=== PATIENT | female | born 1980 | race Caucasian/White ===

== ENCOUNTER 2024-04-01 14:11 | Emergency (ER) | payer OTHER ==
[~2024-04-01] VITALS: Ht 162.6 cm; Wt 74.8 kg
[2024-04-01] MEDS ORDERED: METOCLOPRAMIDE HCL 10 MG/2 ML VIAL IV ONE (15:00)
[2024-04-01] MEDS ORDERED: ACETAMINOPHEN ES 500 MG TABLET ONE (15:29)
[2024-04-01] MEDS ORDERED: METOCLOPRAMIDE HCL 10 MG/2 ML VIAL ONE (15:29)
[2024-04-01] MEDS ORDERED: MECLIZINE HCL 25 MG TABLET ONE (15:29)
[2024-04-01] MEDS: IV NS 0.9% 1,000 ML BAG IV ONE (15:38)
[2024-04-01] MEDS: MECLIZINE HCL 25 MG TABLET PO ONE (15:40)
[2024-04-01] MEDS: ACETAMINOPHEN ES 500 MG TABLET PO ONE (15:41)
[2024-04-01 15:58] LABS: CARBON DIOXIDE 30 mmol/L (21-32); CHLORIDE 103 mmol/L (98-107); CREATININE 0.6 mg/dL (0.6-1.3); GLUCOSE 98 mg/dL (74-106); POTASSIUM 3.6 mmol/L (3.5-5.1); SODIUM SERUM 139 mmol/L (136-145); UREA NITROGEN, BLOOD 9 mg/dL (7-18)
[2024-04-01 16:02] LABS: BASOPHILS % (AUTO) 0.2 % (0.0-2.0); EOSINOPHILS % (AUTO) 0.1 % (0.0-6.0); HEMATOCRIT 37 % (33-45); HEMOGLOBIN 11.9 g/dL (11.5-14.8); LYMPHOCYTES # (AUTO) 2.1 K/uL (0.8-4.8); LYMPHOCYTES % (AUTO) 18.4 % (20.0-44.0); MEAN CORPUSCULAR HEMOGLOBIN 24 PG (26.0-33.0); MEAN CORPUSCULAR HGB CONC 33 g/dl (31.0-36.0); MEAN CORPUSCULAR VOLUME 74 fL (82-100); MONOCYTES # (AUTO) 0.7 K/uL (0.1-1.30); MONOCYTES % (AUTO) 6.2 % (2.0-12.0); NEUTROPHILS # (AUTO) 8.6 K/uL (1.8-8.9); NEUTROPHILS % (AUTO) 75.1 % (43.0-81.0); PLATELET COUNT (AUTO) 337 K/uL (150-450); RED BLOOD CELL COUNT(AUTO) 4.92 MIL/uL (4.0-5.2); RED CELL DISTRIBUTION WIDTH 15.5 % (11.5-15.0); WHITE BLOOD COUNT (AUTO) 11.5 K/uL (4.3-11.0)
[2024-04-01 16:04] LABS: ALANINE AMINOTRANSFERASE 31 U/L (12-78); ALBUMIN 3.9 g/dL (3.4-5.0); ALKALINE PHOSPHATASE 111 U/L (46-116); ASPARTATE AMINOTRANSFERASE 22 U/L (15-37); BILIRUBIN,DIRECT 0.1 mg/dL (0.0-0.2); BILIRUBIN,TOTAL 0.4 mg/dL (0.2-1.0); TOTAL PROTEIN, SERUM 8.2 g/dL (6.4-8.2)
[2024-04-01] MEDS ORDERED: MECL-159 PO (18:04)
[2024-04-01 19:09] VITALS: BP 150/86; TEMP 98.4; O2SAT 99
== END 2024-04-01 19:11 | disposition home or self-care (01) ==
LOC: ER 14:18
DX: R42 Dizziness and giddiness (principal)
CPT/HCPCS: 99284; 96360; 70450; 71045; 85025; 80048; 80076; 36415; 84484; 83880; J8597; J2765; J7030